=== PATIENT | male | born 2000 | race Two or more races ===

== ENCOUNTER 2022-01-10 21:31 | Inpatient (IN) | payer OTHER, SELFPAY ==
[~2022-01-10] VITALS: Ht 185.4 cm; Wt 100.0 kg
[2022-01-10 23:04] LABS: HEMOGLOBIN 16.1 g/dl (13.5-17.5); MEAN CORPUSCULAR HEMOGLOBIN 31.6 pg (27.0-33.0); MEAN CORPUSCULAR VOLUME 90.4 fl (80.0-96.0); PLATELET COUNT, AUTOMATED 304 10^3/uL (150-450); RED BLOOD COUNT 5.09 10^6/uL (4.30-6.10); WHITE BLOOD COUNT 9.9 10^3/uL (4.0-10.0)
[2022-01-10 23:41] LABS: ACETAMINOPHEN LEVEL < 2.0 UG/ML (10.0-30.0); ALBUMIN 4.1 GM/DL (3.2-5.2); ALT/SGPT 19 U/L (12-78); BILIRUBIN,DIRECT < 0.1 MG/DL (0.0-0.2); BILIRUBIN,TOTAL 0.3 MG/DL (0.2-1.0); BLOOD UREA NITROGEN 19 MG/DL (7-18); CALCIUM LEVEL 9.2 MG/DL (8.5-10.1); CARBON DIOXIDE LEVEL 27 MEQ/L (21-32); CHLORIDE LEVEL 110 MEQ/L (98-107); CREATININE FOR GFR 1.14 MG/DL (0.70-1.30); ETHYL ALCOHOL (ETHANOL) < 0.003 % (0.000-0.010); GLUCOSE, FASTING 90 MG/DL (70-100); POTASSIUM SERUM 3.9 MEQ/L (3.5-5.1); SALICYLATE LEVEL 2.4 MG/DL (5.0-30.0); SODIUM LEVEL 143 MEQ/L (136-145); TOTAL PROTEIN 7.4 GM/DL (6.4-8.2)
[2022-01-11] MEDS ORDERED: HOME MED LIST COMPLETE! XX SCH (04:05)
[2022-01-11 07:54] LABS: AMPHETAMINES LEVEL URINE POSITIVE (NEGATIVE); BARBITURATES URINE NEGATIVE (NEGATIVE); BENZODIAZEPINES URINE NEGATIVE (NEGATIVE); CANNABINOIDS URINE POSITIVE (NEGATIVE); COCAINE METABOLITE URINE POSITIVE (NEGATIVE); METHADONE URINE NEGATIVE (NEGATIVE); OPIATES URINE NEGATIVE (NEGATIVE); PHENCYCLIDINE URINE NEGATIVE (NEGATIVE)
[2022-01-11] MEDS ORDERED: traZODone 50 MG TAB PO PRN (13:45)
[2022-01-11] MEDS ORDERED: MOM 30ML SUSPENSION UDC PO PRN (13:45)
[2022-01-11] MEDS ORDERED: ACETAMINOPHEN TAB 650MG DOSE (2X325MG) PO PRN (13:45)
[2022-01-11] MEDS ORDERED: MAALOX 30 ML SUSP *UDC PO PRN (13:45)
[2022-01-11 15:50] VITALS: BP 142/85
[2022-01-12 06:28] VITALS: BP 131/60
[2022-01-12] MEDS ORDERED: LORazepam 1 MG TAB PO ONE (08:30)
[2022-01-12] MEDS: NICOTINE 21MG/24HR 1 EA TRANSDERMAL TD SCH (15:37)
[2022-01-12 18:28] VITALS: BP 139/93
[2022-01-13 06:41] VITALS: BP 119/64
[2022-01-13] MEDS ORDERED: NICO14DI6 TOP (07:35)
[2022-01-13] MEDS ORDERED: HYDR50TA70 PO (07:37)
[2022-01-13] MEDS: NICOTINE 21MG/24HR 1 EA TRANSDERMAL TD SCH (08:16)
== END 2022-01-13 10:32 | disposition home or self-care (01) | DRG 755 ==
LOC: M ED 01-11 09:15 → M ED INP 01-11 13:45 → M PSY 01-11 15:48
PROVIDERS: ADMIT Psychiatry & Neurology Psychiatry; ATTEND Psychiatry & Neurology Psychiatry
DX: F43.25 Adjustment disorder with mixed disturbance of emotions and conduct (principal); F12.10 Cannabis abuse, uncomplicated; F17.200 Nicotine dependence, unspecified, uncomplicated; F15.10 Other stimulant abuse, uncomplicated; R45.851 Suicidal ideations; Z63.5 Disruption of family by separation and divorce; Z81.8 Family history of other mental and behavioral disorders; Z81.3 Family history of other psychoactive substance abuse and dependence; Z91.010 Allergy to peanuts